=== PATIENT | male | born 2000 | race Caucasian/White ===

== ENCOUNTER 2019-01-07 12:38 | Emergency (ER) | payer SELFPAY ==
[2019-01-07 13:24] VITALS: BP 142/71
--- NOTE | 2019-01-07 13:24 | UC ---
Dental HPI - HPI Summary HPI Summary: patient has multiple broken teeth, multiple cavities, is experiencing pain along the bottom right jaw which has gotten worse the past 2 days - History of Current Complaint Stated Complaint: DENTAL COMPLAINT Time Seen by Provider: 01/07/19 13:20 Hx Obtained From: Patient Onset/Duration: Gradual Onset, Lasting Weeks, Worse Since - 2 days Severity: Moderate Related History: Previous Dental Care on Same Tooth, Swelling - Allergies/Home Medications Allergies/Adverse Reactions: Allergies Allergy/AdvReac Type Severity Reaction Status Date / Time No Known Allergies Allergy Verified 01/07/19 13:25 Home Medications: Home Medications Ibuprofen TAB* [Advil TAB*] 600 mg PO Q6H PRN 01/07/19 [History Confirmed ] PMH/Surg Hx/FS Hx/Imm Hx Previously Healthy: Yes - Surgical History Surgical History: None - Family History Known Family History: Negative: Hypertension - Social History Alcohol Use: None Substance Use Type: None Smoking Status (MU): Never Smoked Tobacco Household Exposure Type: Cigarettes - Immunization History Vaccination Up to Date: Yes Review of Systems All Other Systems Reviewed And Are Negative: Yes ENT: Positive: Dental Pain Is Patient Immunocompromised?: No Physical Exam Triage Information Reviewed: Yes Appearance: Well-Appearing, Well-Nourished, Pain Distress Vital Signs Reviewed: Yes Eye Exam: Normal ENT: Positive: Pharynx normal, TMs normal Dental: Positive: Gross Decay/Caries @, Dental Fracture @, Cellulitis @ Neck exam: Normal Neck: Positive: Supple, Nontender Respiratory Exam: Normal Cardiovascular Exam: Normal Abdominal Exam: Normal Abdomen Description: Positive: Nontender, No Organomegaly, Soft Bowel Sounds: Positive: Present Musculoskeletal Exam: Normal Neurological Exam: Normal Psychological Exam: Normal Skin Exam: Normal Dental Complaint Course/Dx - Course Course Of Treatment: hx obtained, exam performed ,meds reviewed, given list of dentist, abx and instructed on oil pulling - Differential Dx/Diagnosis Differential Diagnosis/Dx: Dental Abscess, Dental Caries, Fractured Tooth Provider Diagnosis: Dental abscess, Dental caries Discharge - Sign-Out/Discharge Documenting (check all that apply): Patient Departure All imaging exams completed and their final reports reviewed: No Studies - Discharge Plan Condition: Stable Disposition: HOME Prescriptions: Clindamycin Cap(NF) [Clindamycin Cap 300 mg Cap(NF)] 300 mg PO TID #21 cap Forms: *Work Release Referrals: No Primary Care Phys,NOPCP [Primary Care Provider] - Additional Instructions: 1. take the antibiotic as prescribed. 2. Follow up with the dentist after the antibiotic is completed 3. oil pull twice a day How to Do Oil Pulling in 4 Simple Steps Oil pulling is easy to do and involves just a few simple steps. Here are the 4 simple steps to do oil pulling: Measure one tablespoon of oil, such as coconut, sesame or olive oil. Swish it around in your mouth for 1520 minutes, being careful not to swallow any. Spit the oil into a trash can once you're done. Avoid spitting it into the sink or toilet, as this can cause a buildup of oil, which may lead to clogging. Rinse your mouth well using water before eating or drinking anything. Repeat these steps a few times per week or up to three times daily. You may also want to work your way up, starting with swishing for just 5 minutes and increasing the duration until you're able to do it for a full 1520 minutes. - Billing Disposition and Condition Condition: STABLE Disposition: Home - Attestation Statements Provider Attestation: Per institutional requirements, I have reviewed the chart, however, I was not consulted specifically or made aware of this patient by the midlevel provider. I did not personally evaluate, interact with , or disposition this patient.
== END 2019-01-07 13:51 | disposition home or self-care (01) ==
LOC: UCCORT 12:38
DX: K04.7 Periapical abscess without sinus (principal); K02.9 Dental caries, unspecified; Z77.22 Contact with and (suspected) exposure to environmental tobacco smoke (acute) (chronic)
CPT/HCPCS: 99202; G0463